=== PATIENT | female | born 1935 | race Caucasian/White ===

== ENCOUNTER 2019-06-30 13:29 | Emergency (ER) | payer MEDICARE ==
[2019-06-30] MEDS ORDERED: 0.9 % SODIUM CHLORIDE 1000ML 1,000 ML IV PRN (13:49)
[2019-06-30 14:27] LABS: ABSOLUTE NEUTROPHIL COUNT 1.23; BASO % 0.4 % (0-6); EOS % 1.2 % (0-6); GRAN % 50.9 % (47-80); HEMATOCRIT 36.6 % (35.0-47.0); HEMOGLOBIN 11.9 gm/dl (11.6-16.0); LYMPH % 36.8 % (16-45); MEAN CELL VOLUME 93.1 fl (81-97); MEAN CORPUSCULAR HEMOGLOBIN 30.3 pg (27-33); MEAN CORPUSCULAR HGB CONC 32.5 g/dl (32-36); MEAN PLATELET VOLUME 10.4 fl (7.4-10.4); MONO % 10.7 % (0-9); PLATELET COUNT 121 K/uL (130-400); RED BLOOD COUNT 3.93 M/uL (3.80-5.40); RED CELL DISTRIBUTION WIDTH 12.8 % (11.5-14.5); WHITE BLOOD COUNT W/O DIFF 2.4 K/uL (4.2-12.2)
[2019-06-30 14:38] LABS: PARTIAL THROMBOPLASTIN TIME 24.1 SECONDS (24.5-39.1); PROTHROMBIN TIME (PATIENT) 10.5 SECONDS (9.5-12.1)
[2019-06-30 14:41] LABS: BLOOD UREA NITROGEN 21 mg/dL (8-23); EST GLOMERULAR FILTRATION RATE 56 mL/min
[2019-06-30 14:42] LABS: TOTAL PROTEIN 7.4 g/dL (6.6-8.7)
[2019-06-30 14:44] LABS: GLUCOSE,RANDOM 107 mg/dL (74-109)
[2019-06-30 14:46] LABS: ALB/GLOB RATIO 1.6 (1.1-1.8); ALBUMIN 4.5 g/dL (4.0-5.0); ALKALINE PHOSPHATASE 83 U/L (35-104); ALT/SGPT 11 U/L (<33); AST/SGOT 18 U/L (10.0-35.0)
[2019-06-30 14:47] LABS: ACETAMINOPHEN < 5.0 ug/mL (10.0-30.0); SALICYLATE < 0.3 mg/dL (2.8-20)
--- NOTE | 2019-06-30 15:24 | Emergency Department Record ---
History of Present Illness - General Chief Complaint: Altered Mental Status Stated Complaint: INCREASED CONFUSION/HALLUCINATIONS Time Seen by Provider: 06/30/19 13:49 Source: Patient, RN notes reviewed Mode of Arrival: EMS - History of Present Illness Initial Comments: patient found by daughter on the floor and she incontient of stool and she has been having increased confusion over the last 2 month. She is having viual and auditory hallucinations and no one is there. No pain on talking to her but when I palpated her body she complained about low back pain and left rib pain. No headache and no abdominal pain. She has not seen Dr Hay in 5 years per daughter. -: Unknown Severity: Moderate - Tranquillity Coma Scale Eye Response: (4) Open spontaneously Motor Response: (6) Obeys commands Verbal Response: (4) Confused conversation Tranquillity Total: 14 - Related Data Previous Rx's Medication Instructions Recorded Acetaminophen [Tylenol 325Mg] 650 mg PO Q4H PRN #60 tablet 03/31/15 Alendronate Sodium [Fosamax] 70 mg PO WEEKLY #12 tablet 03/31/15 Calcium Carbonate/Vitamin D3 1 each PO BID #60 tablet 03/31/15 [Calcium 600 + Vit D 800 Tab] Meloxicam [Mobic] 15 mg PO DAILY #30 tablet 03/31/15 Polyethylene Glycol 3350 [Miralax] 17 gm PO [id number] #1 bottle 03/31/15 Sertraline HCl [Zoloft] 25 mg PO [id number] #30 tablet 03/31/15 Allergies Allergy/AdvReac Type Severity Reaction Status Date / Time codeine Allergy PT UNSURE Verified 06/30/19 13:52 OF REACTION Penicillins Allergy ANAPHYLAXIS Verified 06/30/19 13:51 Travel Screening - Travel/Exposure Within Last 30 Days Have you traveled within the last 30 days?: No - Travel/Exposure Within Last Year Have you traveled outside the [place] in the last year?: No - Additonal Travel Details Have you been exposed to anyone with a communicable illness?: No - Travel Symptoms Symptom Screening: None Review of Systems Reviewed: No additional complaints except as noted below Constitutional: Reports: As per HPI. Denies: Chills, Fever, Malaise, Night sweats, Weakness, Weight change Eyes: Reports: As per HPI. Denies: Eye discharge, Eye pain, Photophobia, Vision change ENT: Reports: As per HPI. Denies: Congestion, Dental pain, Ear pain, Epistaxis, Hearing loss, Throat pain Respiratory: Reports: As per HPI. Denies: Cough, Dyspnea, Hemoptysis, Stridor, Wheezes Cardiovascular: Reports: As per HPI. Denies: Arrhythmia, Chest pain, Dyspnea on exertion, Edema, Murmurs, Orthopnea, Palpitations, Paroxysmal nocturnal dyspnea, Rheumatic Fever, Syncope Endocrine: Reports: As per HPI. Denies: Fatigue, Heat or cold intolerance, Polydipsia, Polyuria Gastrointestinal: Reports: As per HPI. Denies: Abdominal pain, Constipation, Diarrhea, Hematemesis, Hematochezia, Melena, Nausea, Vomiting Genitourinary: Reports: As per HPI. Denies: Abnormal menses, Discharge, Dyspareunia, Dysuria, Frequency, Hematuria, Incontinence, Retention, Urgency Musculoskeletal: Reports: As per HPI. Denies: Arthralgia, Back pain, Gout, Joint swelling, Myalgia, Neck pain Skin: Reports: As per HPI. Denies: Bruising, Change in color, Change in hair/nails, Lesions, Pruritus, Rash Neurological: Reports: As per HPI, Confusion. Denies: Abnormal gait, Headache, Numbness, Paresthesias, Seizure, Tingling, Tremors, Vertigo, Weakness Psychiatric: Reports: As per HPI, Auditory hallucinations, Visual hallucinations. Denies: Anxiety, Depression, Homicidal thoughts, Suicidal thoughts Hematological/Lymphatic: Reports: As per HPI. Denies: Anemia, Blood Clots, Easy bleeding, Easy bruising, Swollen glands Past Medical History - SOCIAL HISTORY Smoking Status: Never smoker Alcohol Use: None Drug Use: None - RESPIRATORY Hx Respiratory Disorders: No - CARDIOVASCULAR Hx Cardio Disorders: Yes Hx Hypertension: Yes - NEURO Hx Neuro Disorders: No Hx Seizures: No - GI Hx GI Disorders: Yes Hx Pancreatitis: Yes (hx) Comment:: recent diarrhea - Hx Genitourinary Disorders: No - ENDOCRINE Hx Endocrine Disorders: No Hx Diabetes: No - MUSCULOSKELETAL Hx Musculoskeletal Disorders: Yes Hx Arthritis: Yes Hx Osteoporosis: Yes - PSYCH Hx Psych Problems: No - HEMATOLOGY/ONCOLOGY Hx Hematology/Oncology Disorders: No Family Medical History Any Significant Family History?: Yes Hx Cancer: Children, Brother/Sister Hx Diabetes: Mother, Brother/Sister Hx Heart Disease: Father Hx HTN: Father Hx Stroke: Brother/Sister Physical Exam - General General Appearance: Alert, Oriented x3, Cooperative, No acute distress - Head Head exam: Normal inspection - Eye Eye exam: Normal appearance, PERRL Pupils: Normal accommodation - ENT ENT exam: Normal exam, Mucous membranes moist, Normal external ear exam, Normal orophraynx, TM's normal bilaterally Ear exam: Normal external inspection. negative: External canal tenderness Nasal Exam: Normal inspection. negative: Discharge, Sinus tenderness Mouth exam: Normal external inspection, Tongue normal Teeth exam: Normal inspection. negative: Dental caries Throat exam: Normal inspection. negative: Tonsillar erythema, Tonsillar exudate - Neck Neck exam: Normal inspection, Full ROM. negative: Tenderness - Respiratory Respiratory exam: Normal lung sounds bilaterally. negative: Respiratory distress - Cardiovascular Cardiovascular Exam: Regular rate, Normal rhythm, Normal heart sounds, Other (left rib pain low back ) - GI/Abdominal GI/Abdominal exam: Soft, Normal bowel sounds. negative: Tenderness - Rectal Rectal exam: Deferred - exam: Deferred - Extremities Extremities exam: Normal inspection, Full ROM, Normal capillary refill. negative: Tenderness - Back Back exam: Reports: Normal inspection, Full ROM. Denies: Muscle spasm, Rash noted, Tenderness - Neurological Neurological exam: Alert, Normal gait, Oriented X3, Reflexes normal - Psychiatric Psychiatric exam: Normal affect, Normal mood - Skin Skin exam: Dry, Intact, Normal color, Warm Course Vital Signs 06/30/19 13:53 Temperature 98.7 F Pulse Rate 84 Respiratory 16 Rate Blood Pressure 210/91 Pulse Ox 100 - Reevaluation(s) Reevaluation #1: CT chest T5 compression new since 2014 but can not tell chronicity and she doesn't have pain in that area, compression of L2 and L3 new since 2014, slightly painful in that spot. 06/30/19 17:06 Reevaluation #2: called Dr Stock at [facility] who excepted the admission and transfer. urosepsis and hallucinations 06/30/19 17:24 Medical Decision Making - Data Complexity MDM Data: Labs Ordered and/or Reviewed, X-Ray Ordered and/or Reviewed (Head CT only chronic changes, abd lumbar compression fractures worse than the one 5 years ago and clinically they are old compressions) - Lab Data Result diagrams: 06/30/19 14:10 06/30/19 14:10 Lab Results 06/30/19 06/30/19 06/30/19 Range/Units 14:10 14:10 14:10 WBC 2.4 L (4.2-12.2) K/uL RBC 3.93 (3.80-5.40) M/uL Hgb 11.9 (11.6-16.0) gm/dl Hct 36.6 (35.0-47.0) % MCV 93.1 (81-97) fl MCH 30.3 (27-33) pg MCHC 32.5 (32-36) g/dl RDW 12.8 (11.5-14.5) % Plt Count 121 L (130-400) K/uL MPV 10.4 (7.4-10.4) fl Gran % 50.9 (47-80) % Lymphocytes % 36.8 (16-45) % Monocytes % 10.7 H (0-9) % Eosinophils % 1.2 (0-6) % Basophils % 0.4 (0-6) % Absolute Neutrophils 1.23 PT 10.5 (9.5-12.1) SECONDS INR 1.0 APTT 24.1 L (24.5-39.1) SECONDS Sodium 139 (136-145) mmol/L Potassium 3.9 (3.4-4.5) mmol/L Chloride 102 (98-107) mmol/L Carbon Dioxide 23.0 (22-29) mmol/L Anion Gap 14.0 (7-16) BUN 21 (8-23) mg/dL Creatinine 1.0 H (0.5-0.9) mg/dL Estimated GFR 56 mL/min Random Glucose 107 (74-109) mg/dL Calcium 9.7 (8.8-10.2) mg/dL Total Bilirubin 0.50 (0.2-1.0) mg/dL AST 18 (10.0-35.0) U/L ALT 11 (<33) U/L Alkaline Phosphatase 83 (35-104) U/L Total Protein 7.4 (6.6-8.7) g/dL Albumin 4.5 (4.0-5.0) g/dL Globulin 2.9 (1.4-4.8) gm/dL Albumin/Globulin Ratio 1.6 (1.1-1.8) TSH (0.270-4.20) uIU/mL Salicylates < 0.3 L (2.8-20) mg/dL Acetaminophen < 5.0 L (10.0-30.0) ug/mL 06/30/19 Range/Units 14:10 WBC (4.2-12.2) K/uL RBC (3.80-5.40) M/uL Hgb (11.6-16.0) gm/dl Hct (35.0-47.0) % MCV (81-97) fl MCH (27-33) pg MCHC (32-36) g/dl RDW (11.5-14.5) % Plt Count (130-400) K/uL MPV (7.4-10.4) fl Gran % (47-80) % Lymphocytes % (16-45) % Monocytes % (0-9) % Eosinophils % (0-6) % Basophils % (0-6) % Absolute Neutrophils PT (9.5-12.1) SECONDS INR APTT (24.5-39.1) SECONDS Sodium (136-145) mmol/L Potassium (3.4-4.5) mmol/L Chloride (98-107) mmol/L Carbon Dioxide (22-29) mmol/L Anion Gap (7-16) BUN (8-23) mg/dL Creatinine (0.5-0.9) mg/dL Estimated GFR mL/min Random Glucose (74-109) mg/dL Calcium (8.8-10.2) mg/dL Total Bilirubin (0.2-1.0) mg/dL AST (10.0-35.0) U/L ALT (<33) U/L Alkaline Phosphatase (35-104) U/L Total Protein (6.6-8.7) g/dL Albumin (4.0-5.0) g/dL Globulin (1.4-4.8) gm/dL Albumin/Globulin Ratio (1.1-1.8) TSH 2.47 (0.270-4.20) uIU/mL Salicylates (2.8-20) mg/dL Acetaminophen (10.0-30.0) ug/mL Disposition Clinical Impression: Hallucinations, Benign essential HTN UTI (urinary tract infection) Qualifiers: Urinary tract infection type: acute cystitis Hematuria presence: without hematuria Qualified Code(s): N30.00 - Acute cystitis without hematuria Compression of lumbar vertebra Qualifiers: Encounter type: initial encounter Lumbar vertebra fracture level: L2 Qualified Code(s): S32.020A - Wedge compression fracture of second lumbar vertebra, initial encounter for closed fracture Compression of thoracic vertebra Qualifiers: Encounter type: initial encounter Thoracic vertebra fracture level: T5 Qualified Code(s): S22.050A - Wedge compression fracture of T5-T6 vertebra, initial encounter for closed fracture Disposition: Acute Care Hospital Transfer Condition: (2) Stable Forms: Patient Portal Access Quality - Quality Measures Quality Measures: N/A - Blood Pressure Screening Does Patient Have Any of the Following: No Blood Pressure Classification: Hypertensive Reading Systolic Measurement: 210 Diastolic Measurement: 91 Screening for High Blood Pressure: < First Hypertensive BP, F/U Documented > [G8950] First Hypertensive Follow-up Interventions: Referral to alternative/primary care provider.
[2019-06-30 15:27] LABS: URINE APPEARANCE CLEAR; URINE BILIRUBIN NEGATIVE (NEGATIVE); URINE BLOOD TRACE-I (NEGATIVE); URINE COLOR YELLOW; URINE GLUCOSE (UA) NEGATIVE (NEGATIVE); URINE KETONE NEGATIVE (NEGATIVE); URINE LEUKOCYTE ESTERASE SMALL (NEGATIVE); URINE NITRITE POSITIVE (NEGATIVE); URINE PROTEIN NEGATIVE (NEGATIVE)
[2019-06-30 15:34] LABS: AMPHETAMINE SCREEN URINE NOT DETECTED; BARBITURATE SCREEN URINE NOT DETECTED; BENZODIAZEPINE SCREEN URINE NOT DETECTED; COCAINE SCREEN URINE NOT DETECTED; METHADONE SCREEN URINE NOT DETECTED; METHAMPHETAMINE SCREEN NOT DETECTED; OPIATE SCREEN URINE NOT DETECTED; OXYCODONE SCREEN URINE NOT DETECTED; PHENCYCLIDINE SCREEN URINE NOT DETECTED; PROPOXYPHENE SCREEN URINE NOT DETECTED; THC SCREEN URINE NOT DETECTED; TRICYCLIC ANTIDEPRESSANT SCRN NOT DETECTED
[2019-06-30 15:39] LABS: URINE BACTERIA 4+; URINE EPITHELIAL CELLS 0 - 2 (FEW)
[2019-06-30 15:42] LABS: AMMONIA 11 umol/L (11.0-51.0)
[2019-06-30] MEDS ORDERED: CEFTRIAXONE SODIUM 1 GM in 0.9 % SODIUM CHLORIDE 100ML 100 ML IVPB ONE (16:59)
--- NOTE | 2019-07-01 14:40 | CT SCAN REPORT ---
EXAM: CT OF THE HEAD WITHOUT CONTRAST HISTORY: FOUND DOWN ON BATHROOM FLOOR, CONFUSION. TECHNIQUE: Without administration of intravenous contrast contiguous CT sections were obtained throughout the brain with sagittal and coronal reformats. FINDINGS: Mild prominence of the CSF spaces seen diffusely consistent with age related atrophy. Otherwise, CSF spaces appear grossly unremarkable. No evidence for intra or extraaxial bleeding. Periventricular and subcortical areas of white matter hypoattenuation present bilaterally and in a patient of this age likely represent chronic sequela of small vessel ischemic disease. Focal hypodensity at the internal capsule on the left appears unchanged, likely an old lacunar infarct. Javed white junction appears intact. No mass effect or midline shift. Dural calcifications along the tentorium on the right without gross change. There is atherosclerosis. Visualized portions of the paranasal sinuses, mastoids, and orbits reveals a partially opacified ethmoid air cell on the left. No visualized skull fracture. IMPRESSION: NO ACUTE INTRACRANIAL PROCESS EVIDENT BY NONCONTRAST TECHNIQUE. DETAILS ABOVE. JOB NUMBER: [id number] [facility]
--- NOTE | 2019-07-01 14:51 | CT SCAN REPORT ---
EXAM: CT OF THE ABDOMEN AND PELVIS WITHOUT CONTRAST HISTORY: FOUND ON BATHROOM FLOOR. TECHNIQUE: Without administration of intravenous contrast contiguous axial sections obtained through the abdomen and pelvis with coronal and sagittal reformats. Comparison: 03/04/15. FINDINGS: Curvilinear opacities present at the lung bases bilaterally likely areas of atelectasis or scarring. Noncontrast technique limits evaluation of the solid organs. There is a calcified granuloma of the spleen. There is a continuing cyst of the right hepatic lobe measuring 2.5 cm. Additional cysts of the left hepatic lobe also continue the largest measuring 2.0 cm. Solid organs otherwise appear unremarkable as visualized. No sentinel clot identified. There are large calcified gallstones present. No pericholecystic fluid evident. There is atherosclerosis. No abdominal aortic aneurysm. Evaluation of the vasculature otherwise limited. The GI tract is nondilated. The appendix is likely normal. Limited by a paucity of fat. There are multiple diverticula of the distal colon without evidence for diverticulitis at this time. No mesenteric adenopathy. No retroperitoneal adenopathy. No free air or fluid identified. The urinary bladder appears grossly unremarkable as seen. The abdominal wall is grossly intact. The bones are osteopenic. There is a compression deformity of L3 which is new since 2015. Healed fractures of the superior and inferior pubic rami on the right. There are degenerative changes of the spine, sacroiliac joints, and hips. There also mild compression of L2, new since 2015. IMPRESSION: 1. THERE ARE COMPRESSION DEFORMITIES OF L2 AND L3, NEW SINCE 2015, BUT CHRONICITY IS NOT KNOWN. THESE COULD BE FURTHER INVESTIGATED WITH MRI IF CLINICALLY NEEDED. 2. OTHERWISE WITHIN THE CONFINES OF NONCONTRAST TECHNIQUE NO ADDITIONAL POST TRAUMATIC CHANGE IDENTIFIED. 3. CHOLELITHIASIS. 4. COLON DIVERTICULOSIS WITHOUT CLEAR EVIDENCE FOR DIVERTICULITIS. 5. ADDITIONAL FINDINGS ABOVE. JOB NUMBER: [id number] [facility]
--- NOTE | 2019-07-01 15:00 | CT SCAN REPORT ---
EXAM: CT OF THE CHEST WITHOUT CONTRAST HISTORY: FOUND ON BATHROOM FLOOR. TECHNIQUE: Without administration of intravenous contrast contiguous axial CT sections were obtained through the chest with coronal and sagittal reformats. Comparison: 03/04/15. FINDINGS: Curvilinear opacities are noted about the lung bases bilaterally likely areas of lung scarring or subsegmental atelectasis. Small pulmonary nodules of the lingula and left lower lobe appear similar to the patient's previous examination. Small nodule along the posterior margin of the right upper lobe also appears similar. Biapical pleural and parenchymal scarring grossly unchanged. Airways appear patent. Small airways limited by motion. No effusion or pneumothorax. Noncontrast technique limits evaluation of the mediastinal structures. There is atherosclerosis and coronary artery calcifications. The great vessels appear normal in outside diameter. No pericardial thickening. The heart size appears within normal limits. No mediastinal hematoma identified. No mediastinal or hilar adenopathy evident. Limited by noncontrast technique. There is a nodule present at the right thyroid lobe. Similar in appearance to the prior CT examination. The chest wall appears intact. No axillary adenopathy evident. Motion limits evaluation of the ribs. No discrete rib fracture visualized. There are degenerative changes of the spine. Compression deformities of the thoracic spine again evident. There is a new, since 2015, compression fracture of T5. Those appear osteopenic. IMPRESSION: 1. THERE IS A COMPRESSION DEFORMITY OF T5 WHICH IS NEW SINCE 2015, BUT CHRONICITY IS UNKNOWN. MRI EXAMINATION CAN FURTHER INVESTIGATE IF CLINICALLY NEEDED. 2. OTHERWISE WITHIN THE CONFINES OF NONCONTRAST TECHNIQUE NO ADDITIONAL POST TRAUMATIC CHANGE EVIDENT. 3. ATHEROSCLEROSIS AND CORONARY ARTERY CALCIFICATIONS. 4. GROSSLY STABLE APPEARING PULMONARY NODULES. 5. ADDITIONAL FINDINGS ABOVE. [facility]: [id number] [facility]
== END 2019-06-30 19:09 | disposition short-term general hospital (02) ==
LOC: ER 13:29
DX: N30.00 Acute cystitis without hematuria (principal); S22.050A Wedge compression fracture of T5-T6 vertebra, initial encounter for closed fracture; S32.020A Wedge compression fracture of second lumbar vertebra, initial encounter for closed fracture; I10 Essential (primary) hypertension
CPT/HCPCS: 99285 ×2; 96365; 82550; 82140; 85025; 85730; 85610; 80053; 81001; 84443; 80305; 71250; 70450; 74176; 93005; 93010; G0480 ×2; 80329